=== PATIENT | male | born 1960 | race Caucasian/White ===

== ENCOUNTER 2016-06-05 05:24 | Day surgery (SDC) | payer BC ==
[~2016-06-05] VITALS: Ht 175.3 cm; Wt 99.3 kg
[~2016-06-05 05:24] MED LIST: COUMADIN5 MG PO; DEMEROL50 MG PO; ELIQUIS5 MG PO; LIPITOR80 MG PO; PERCOCET 10/3251 TA1 PO; PLAVIX75 MG PO; PRAVACHOL40 MG PO; TOPROL XL25 MG PO
[2016-06-05 06:13] VITALS: BP 142/80; Ht 175.3 cm; Wt 99.3 kg
[2016-06-05 06:27] LABS: HEMATOCRIT 45.2 % (42.0-54.0); HEMOGLOBIN 15.6 g/dL (13.5-17.5); MCH 31.1 pg (26.0-34.0); MCHC 34.5 g/dL (31.0-37.0); MEAN PLATELET VOLUME 10.4 fL (7.4-10.4); RBC 5.02 10x6/uL (4.20-6.10); RDW 12.6 % (11.5-14.5); WBC 6.3 10x3/uL (4.8-10.8)
--- NOTE | 2016-06-05 10:44 | NUR ---
1040 FULL LIQUID DIET SERVED
--- NOTE | 2016-06-05 11:11 | NUR ---
4778 DISCHARGE INSTRUCTIONS REVIEWED WITH PATIENT; VERBALIZED UNDERSTANDING
--- NOTE | 2016-06-21 15:22 | OP ---
PATIENT NAME: KYRA NEWTON MEDICAL RECORD: [id number] :58 LOCATION:[facility] ADMISSION DATE: SURGEON: YAZAN KHAN MD DATE OF OPERATION: 06/05/2016 PREOPERATIVE DIAGNOSIS: Left hip arthritis as well as sacroiliac pain. POSTOPERATIVE DIAGNOSIS: Left hip arthritis as well as sacroiliac pain. PROCEDURE: 1. Left hip injection under fluoroscopy. 2. Sacroiliac injection under fluoroscopy. SURGEON: Yazan Khan MD ANESTHESIA: General. INTRAOPERATIVE COMPLICATIONS: None. SUMMARY OF PATHOLOGIC FINDINGS: Consistent with the preoperative diagnosis, the patient has mild to moderate DJD of the hip and preoperative pain of the sacrum. OPERATIVE SUMMARY IN DETAIL: After obtaining the appropriate preoperative orthopedic surgery consent as well as anesthetic consultation, evaluation and clearance, the patient was brought to the operating room and placed in supine position. After adequate TIVA anesthesia was administered, the left hip was prepped and draped in a routine sterile fashion. The 18-gauge spinal needle was then directed into the hip under fluoroscopy. Care was taken to avoid the great vessels, small amount of Isovue was placed in the hip to be sure that the spinal needle was in the appropriate position. Combination of 10 cc of Marcaine with epinephrine and 40 mg of Depo-Medrol was injected into the hip. Needle tip was withdrawn. Bandage was applied. At this point, the patient was rolled onto his left side in left lateral decubitus position and under fluoroscopic guidance, an 18-gauge spinal needle was placed into the sacroiliac joint and small amount of Isovue was again used in this area to be sure that the needle was in the right position and then 5 cc of 0.25% Marcaine with epinephrine and 40 mg of Depo-Medrol were injected into the right SI joint. Having completed this, the needle tip was withdrawn. Bandage was placed. The patient was awakened, taken to recovery room in stable condition. All final needle and sponge counts were correct. TRANSINT:[id number] Voice Confirmation ID: [id number] DOCUMENT ID: [id number] YAZAN KHAN MD at 1522 CC: [id number] DICTATION DATE: 06/19/16 1419 MAINTENANCE PARTS TECHNICIAN: 06/19/16 2334 [facility] 06/05/16 [facility] [address] [facility] [place] [address]
== END 2016-06-05 11:10 | disposition home or self-care (01) ==
LOC: D.OPS 05:24 → D.PAN 10:45 → D.OPS 10:45
PROVIDERS: Anesthesiology
DX: M16.12 Unilateral primary osteoarthritis, left hip (principal); M53.3 Sacrococcygeal disorders, not elsewhere classified

== ENCOUNTER 2018-01-21 05:50 | Day surgery (SDC) | payer BC ==
[2018-01-18 09:05] LABS: HEMATOCRIT 46.3 % (42.0-54.0); HEMOGLOBIN 16.2 g/dL (13.5-17.5); MCH 32.8 pg (26.0-34.0); MCV 93.7 fL (80.0-100.0); MEAN PLATELET VOLUME 9.8 fL (7.4-10.4); RBC 4.94 10x6/uL (4.20-6.10); RDW 12.4 % (11.5-14.5); WBC 7.9 10x3/uL (4.8-10.8)
[2018-01-18 09:10] LABS: APTT 30.8 SECONDS (22.8-39.4); INR 1.03 (0.85-1.17); PROTIME 13.2 SECONDS (11.6-15.0)
[~2018-01-21] VITALS: Ht 175.3 cm; Wt 85.7 kg
--- NOTE | ~2018-01-21 | OP ---
PATIENT NAME: KYRA NEWTON MEDICAL RECORD: [id number] :58 LOCATION:[place] ADMISSION DATE: SURGEON: YAZAN KHAN MD DATE OF OPERATION: 01/21/2018 PREOPERATIVE DIAGNOSES: Impingement syndrome, acromioclavicular arthritis, biceps tendinitis along with rotator cuff tearing of the right shoulder. POSTOPERATIVE DIAGNOSES: Impingement syndrome, acromioclavicular arthritis, biceps tendinitis along with rotator cuff tearing of the right shoulder. PROCEDURES: 1. Arthroscopic rotator cuff repair. 2. Arthroscopic distal clavicle excision done through separate incision -- 1 cm. 3. Arthroscopic subacromial decompression, acromioplasty and bursectomy. SURGEON: Yazan Khan MD ANESTHESIA: General. INTRAOPERATIVE COMPLICATIONS: None. SUMMARY OF PATHOLOGIC FINDINGS: The patient was found to have some biceps tendinitis; however, there were no tearing and no deficit. I felt like in this weightlifter would be better to proceed with residual of the biceps tendon as I think it can heal over time given these findings rather than to do a tenodesis or tenotomy. OPERATIVE SUMMARY IN DETAIL: After obtaining the appropriate preoperative orthopedic surgery consent as well as anesthetic consultation, evaluation, and clearance the patient was brought to the operating room and placed on the operating table in supine position. After general laryngeal mask airway was administered, the patient was placed in left lateral decubitus position. All pressure points were well padded to include down leg peroneal pad as well as axillary roll. The patient was held firmly to the operating table using the vacuum pack suction system. Right upper extremity and shoulder were then prepped and draped in routine sterile fashion. The arm was held in [employer] traction boom at 30 degrees of forward flexion, 30 degrees of abduction with 10 pounds of traction laterally. Arthroscopy was established in the glenohumeral joint from the posterior portal. Anterior portal was established in the anterior safe interval. Diagnostic arthroscopy did show the above findings. No substantial labral tearing was noted and the biceps tendonitis was noted. The rotator cuff tear was seen just posterior to the biceps tendonitis. Transrotator cuff portal was created for debridement of the rotator cuff fibers that were nonviable on appearance along with decortication of the supraspinatus tendinous footprint on the articular aspect. Having completed this, attention was turned to the subacromial space. While on the subacromial space, [employer] tissue ablation system was utilized to denude the undersurface of the acromion of all soft tissue elements and release the coracoacromial ligament. A 5-0 barrel bur was used for acromioplasty at the level of acromioclavicular joint and through a separate arthroscopic anterior portal under direct arthroscopic visualization, distal clavicle was excised. Having completed this, attention was returned to the rotator cuff. A single inverted FiberTape was placed through the rotator cuff tear. It was then anchored laterally using a 4.75 OPERATIVE REPORT [id number] KYRA NEWTON from [employer]. Having completed this, arthroscopy portals were closed in routine interrupted fashion using 4-0 Prolene. Sterile dressings were applied. The patient was awakened, taken to recovery room in stable condition. All final needle and sponge counts were correct. TRANSINT:[id number] Voice Confirmation ID: [id number] DOCUMENT ID: [id number] BILL ATWOOD, YAZAN LEON at 0840 CC: [id number] DICTATION DATE: 01/30/18 1645 PLASTICS BENCH MECHANIC: 01/30/18 2341 [facility] 01/21/18 [facility] [address] [place] [address]
[2018-01-21] MEDS ORDERED: CYCLOBENZAPRINE10 MG PO (06:39)
[2018-01-21 06:51] VITALS: BP 120/70; Ht 175.3 cm; Wt 85.7 kg
[2018-01-21] MEDS ORDERED: DILAUDID2 MG PO (09:13)
== END 2018-01-21 10:41 | disposition home or self-care (01) ==
LOC: D.OPS 05:50 → D.PAN 08:15 → D.OPS 08:15 → D.PAN 08:45 → D.OPS 10:41 → D.PAN 11:15
PROVIDERS: Anesthesiology
DX: M75.41 Impingement syndrome of right shoulder (principal); M75.21 Bicipital tendinitis, right shoulder; M19.011 Primary osteoarthritis, right shoulder; M75.101 Unspecified rotator cuff tear or rupture of right shoulder, not specified as traumatic